=== PATIENT | female | born 1995 | race American Indian/Alaskan Native ===

== ENCOUNTER 2019-12-23 21:03 | Inpatient (IN) | payer MEDICAID ==
[2019-12-23] MEDS ORDERED: DOCUSATE SODIUM 100 MG CAP PO PRN (21:46)
[2019-12-23] MEDS ORDERED: ONDANSETRON 4 MG/2 ML INJ IV PRN (21:46)
--- NOTE | 2019-12-23 21:57 | History and Physical Report ---
History of Present Illness Date of examination: 12/23/19 Chief complaint: my water broke History of present illness: Pt is a 24 year old old primigravida ANN 05/02/20 at 21w2d who presents c/o leakage of fluid since 1999 pm 12/23/19 (though upon further questioning she reports possible leakage of fluid since 12/22/19). She reports pelvic pressure and contractions once every 2-3 hours but denies any vaginal bleeding. She has had care at [facility] with comanagement with [facility] complicated by morbid obesity, di-di twin IUP, Rubella Equivocal status, Rh Negative status, Sickle Cell Trait, Alpha Thalassemia Carrier Status, Subchorionic hemorrhage in first trimester, and shortened cervix 1.65 cm noted on MFM scan 12/10/19 with prescription for Progesterone 200 mg QHS at that time. Her GBS status is unknown. Past History Past Medical History: other (morbid obesity ) Past Surgical History: no surgical history Family/Genetic History: none Social history: no significant social history - Obstetrical History Expected Date of Delivery: 05/02/20 Actual Gestation: 21 Week(s) 3 Day(s) : 1 Medications and Allergies Allergies Allergy/AdvReac Type Severity Reaction Status Date / Time No Known Allergies Allergy Verified 12/23/19 23:12 Review of Systems All systems: negative - Physical Exam Breasts: Positive: deferred Abdomen: Positive: soft (obese, gravid ). Negative: tenderness Vagina: Positive: other (pooling on speculum exam; nitrizine positive ) Uterus: Positive: enlarged (gravid ). Negative: tender - Obstetrical FHR: auscultation normal Uterine Contraction Monitor Mode: External Cervical Dilatation: 1 (on speculum exam ) Uterine Contraction Pattern: Absent Uterine Tone Measurement Phase: Resting Results Result Diagrams: 12/23/19 22:57 12/23/19 22:57 All other labs normal. Assessment and Plan A: Di-Di twin IUP at 21w2d Previable PPROM Febrile Morbidity Morbid Obesity Rh Negative Status Rubella Equivocal Sickle Cell Trait Silent Carrier for Alpha Thalassemia GBS status unknown P: Admit to antepartum service CBC, Type and Screen, UA Ultrasound Serial Abdominal Exams Continuous toco Monitor maternal and status closely
--- NOTE | 2019-12-23 22:55 | Event Note ---
Date: 12/23/19 On-call MD presented case to On-call MD for [facility]. Clinical scenario discussed. Recommended holding antibiotics if diagnosis of chorioamnionitis not clear in an effort not to mask disease process worsening. Awaiting lab and ultrasound results. Plan to observe closely with serial abdominal examinations. Closely monitor clinical status.
[2019-12-23] MEDS ORDERED: GENTAMICIN/NS 80 MG/100 ML 100 ML IV SCH (23:00)
[2019-12-23] MEDS ORDERED: AMPICILLIN IV SCH (23:00)
[2019-12-23] MEDS ORDERED: SODIUM CHLORIDE 0.9% IV SCH (23:00)
[2019-12-23 23:27] LABS: Hematocrit 32.1 % (30.3-42.9); Hemoglobin 10.4 gm/dl (10.1-14.3); Mean Corpuscular HGB Conc 33 % (30-34); Mean Corpuscular Volume 75 fl (79-97); Platelet Count 239 K/mm3 (140-440); Red Blood Count 4.26 M/mm3 (3.65-5.03); Red Cell Distribution Width 15.3 % (13.2-15.2)
[2019-12-23] MEDS: LACTATED RINGERS 1,000 ML IV SCH (23:28)
[2019-12-23 23:58] LABS: C-Reactive Protein 4.1 mg/dL (0.00-1.30)
--- NOTE | 2019-12-24 01:04 | Ultrasound Report ---
ULTRASOUND OBSTETRIC Indication: TWIN IUP @ 21 WEEKS, PPROM Findings: There is a twin intrauterine . Twin A BPD = 5.2 cm = 21 weeks, 6 day(s). Head circumference = 19.2 cm = 21 weeks, 3 day(s). Abdominal circumference = 17.2 cm = 21 weeks, 1 day(s). Femur length = 3.4 cm = 20 weeks, 3 day(s). Overall estimated sonographic age = 21 weeks, 3 day(s). heart rate is 165 beats per minute. Estimated weight is 422 grams position is cephalic. Cervix measures 3.2 cm in length Placenta is anterior and grade 0 . Amniotic fluid volume appears normal. Twin B BPD = 5.3 cm = 22 weeks, 1 day(s). Head circumference = 19.7 cm = 21 weeks, 6 day(s). Abdominal circumference = 17.2 cm = 22 weeks, 1 day(s). Femur length = 3.7 cm = 21 weeks, 2 day(s). Overall estimated sonographic age = 21 weeks, 6 day(s). heart rate is 166 beats per minute. Estimated weight is 449 grams position is breech. Cervix measures 3.2 cm in length Placenta is posterior and grade 0 . Amniotic fluid volume appears normal. Impression: Viable twin intrauterine . No sonographic abnormality identified. Signer Name: Mayank Bragg MD Signed: 12/24/2019 1:00 AM Workstation Name: [id number]
[2019-12-24 04:05] LABS: Band Neutrophils # (Manual) 0.1 K/mm3; Basophils % (Manual) 0 % (0.0-1.8); Total Cells Counted 100
[2019-12-24 04:06] LABS: Anisocytosis Few; Hypochromasia Few; Ovalocytes Few; Platelet Estimate Consistent w Auto; Schistocytes Few; Target Cells Rare
--- NOTE | 2019-12-24 08:30 | Progress Note ---
Assessment and Plan A/P GENET twins 20 weeks PPROM fevbrile_ afebrile now consult with MFM, and NICCU close monitor covid testing Subjective - Subjective Date of service: 12/24/19 Principal diagnosis: twins, PPROM Patient reports: loss of fluid, movement normal, no new complaints, no vaginal bleeding, no contractions Objective - Vital Signs Vital Signs: Vital Signs - 12hr 12/23/19 12/23/19 12/23/19 22:17 23:02 23:05 Temperature 101.5 F H 98.0 F Pulse Rate 117 H 114 H 116 H Respiratory 18 Rate Blood Pressure Blood Pressure 120/57 [Right] O2 Sat by Pulse 97 Oximetry 12/23/19 12/23/19 12/23/19 23:07 23:12 23:17 Temperature Pulse Rate 109 H 110 H 111 H Respiratory Rate Blood Pressure Blood Pressure [Right] O2 Sat by Pulse 98 98 98 Oximetry 12/23/19 12/23/19 12/23/19 23:22 23:27 23:32 Temperature Pulse Rate 109 H 116 H 106 H Respiratory Rate Blood Pressure Blood Pressure [Right] O2 Sat by Pulse 98 98 98 Oximetry 12/23/19 12/23/19 12/23/19 23:37 23:42 23:47 Temperature Pulse Rate 112 H 108 H 112 H Respiratory Rate Blood Pressure Blood Pressure [Right] O2 Sat by Pulse 97 98 99 Oximetry 12/23/19 12/23/19 12/24/19 23:52 23:57 00:02 Temperature Pulse Rate 112 H 113 H 114 H Respiratory Rate Blood Pressure Blood Pressure [Right] O2 Sat by Pulse 98 98 98 Oximetry 12/24/19 12/24/19 12/24/19 00:07 00:12 00:17 Temperature Pulse Rate 109 H 111 H 113 H Respiratory Rate Blood Pressure Blood Pressure [Right] O2 Sat by Pulse 99 99 98 Oximetry 12/24/19 12/24/19 12/24/19 00:20 00:22 00:27 Temperature Pulse Rate 110 H 115 H 112 H Respiratory Rate Blood Pressure 117/59 Blood Pressure [Right] O2 Sat by Pulse 95 97 Oximetry 12/24/19 12/24/19 12/24/19 00:30 00:32 00:37 Temperature 98.4 F Pulse Rate 112 H 105 H Respiratory Rate Blood Pressure Blood Pressure [Right] O2 Sat by Pulse 98 97 Oximetry 12/24/19 12/24/19 12/24/19 00:42 00:47 00:52 Temperature Pulse Rate 105 H 102 H 102 H Respiratory Rate Blood Pressure Blood Pressure [Right] O2 Sat by Pulse 96 97 98 Oximetry 12/24/19 12/24/19 12/24/19 00:57 01:02 01:07 Temperature Pulse Rate 104 H 101 H 105 H Respiratory Rate Blood Pressure Blood Pressure [Right] O2 Sat by Pulse 99 100 99 Oximetry 12/24/19 12/24/19 12/24/19 01:12 01:17 01:22 Temperature Pulse Rate 104 H 103 H 101 H Respiratory Rate Blood Pressure Blood Pressure [Right] O2 Sat by Pulse 98 98 99 Oximetry 12/24/19 12/24/19 12/24/19 01:27 01:30 01:32 Temperature Pulse Rate 102 H 94 H 100 H Respiratory Rate Blood Pressure 96/51 Blood Pressure [Right] O2 Sat by Pulse 98 98 Oximetry 12/24/19 12/24/19 12/24/19 01:33 02:01 02:06 Temperature 99.0 F Pulse Rate 109 H 104 H Respiratory Rate Blood Pressure Blood Pressure [Right] O2 Sat by Pulse 96 97 Oximetry 12/24/19 12/24/19 12/24/19 02:11 02:16 02:21 Temperature Pulse Rate 105 H 105 H 104 H Respiratory Rate Blood Pressure Blood Pressure [Right] O2 Sat by Pulse 98 97 97 Oximetry 12/24/19 12/24/19 12/24/19 02:26 02:31 02:35 Temperature Pulse Rate 103 H 103 H 94 H Respiratory Rate Blood Pressure 115/64 Blood Pressure [Right] O2 Sat by Pulse 96 96 Oximetry 12/24/19 12/24/19 12/24/19 02:36 02:41 02:46 Temperature 98.8 F Pulse Rate 93 H 103 H 102 H Respiratory Rate Blood Pressure Blood Pressure [Right] O2 Sat by Pulse 97 96 97 Oximetry 12/24/19 12/24/19 12/24/19 02:51 02:56 03:01 Temperature Pulse Rate 101 H 101 H 95 H Respiratory Rate Blood Pressure Blood Pressure [Right] O2 Sat by Pulse 97 97 97 Oximetry 12/24/19 12/24/19 12/24/19 03:06 03:11 03:13 Temperature Pulse Rate 100 H 104 H 104 H Respiratory Rate Blood Pressure Blood Pressure [Right] O2 Sat by Pulse 97 97 94 Oximetry 12/24/19 12/24/19 12/24/19 03:16 03:19 03:21 Temperature Pulse Rate 102 H 94 H 96 H Respiratory Rate Blood Pressure Blood Pressure [Right] O2 Sat by Pulse 97 89 97 Oximetry 12/24/19 12/24/19 12/24/19 03:26 03:31 03:35 Temperature 98.4 F Pulse Rate 103 H 92 H Respiratory Rate Blood Pressure Blood Pressure [Right] O2 Sat by Pulse 98 98 Oximetry 12/24/19 12/24/19 12/24/19 03:36 03:41 03:46 Temperature Pulse Rate 93 H 97 H 99 H Respiratory Rate Blood Pressure 111/64 Blood Pressure [Right] O2 Sat by Pulse 96 97 97 Oximetry 12/24/19 12/24/19 12/24/19 03:51 03:56 04:01 Temperature Pulse Rate 98 H 97 H 100 H Respiratory Rate Blood Pressure Blood Pressure [Right] O2 Sat by Pulse 96 96 96 Oximetry 12/24/19 12/24/19 12/24/19 04:06 04:11 04:16 Temperature Pulse Rate 97 H 95 H 96 H Respiratory Rate Blood Pressure Blood Pressure [Right] O2 Sat by Pulse 96 97 97 Oximetry 12/24/19 12/24/19 12/24/19 04:21 04:26 04:31 Temperature Pulse Rate 104 H 106 H 101 H Respiratory Rate Blood Pressure Blood Pressure [Right] O2 Sat by Pulse 97 98 97 Oximetry 12/24/19 12/24/19 12/24/19 04:36 04:41 04:43 Temperature Pulse Rate 96 H 98 H 91 H Respiratory Rate Blood Pressure 113/63 Blood Pressure [Right] O2 Sat by Pulse 96 97 93 Oximetry 12/24/19 12/24/19 12/24/19 04:45 04:46 04:51 Temperature 98.1 F Pulse Rate 97 H 98 H Respiratory Rate Blood Pressure Blood Pressure [Right] O2 Sat by Pulse 97 98 Oximetry 12/24/19 12/24/19 12/24/19 04:52 04:56 04:59 Temperature Pulse Rate 94 H 97 H 94 H Respiratory Rate Blood Pressure Blood Pressure [Right] O2 Sat by Pulse 94 94 94 Oximetry 12/24/19 12/24/1920 05:01 05:06 05:11 Temperature Pulse Rate 95 H 96 H 96 H Respiratory Rate Blood Pressure Blood Pressure [Right] O2 Sat by Pulse 96 94 95 Oximetry 12/24/19 12/24/19 12/24/19 05:12 05:16 05:18 Temperature Pulse Rate 94 H 95 H 94 H Respiratory Rate Blood Pressure Blood Pressure [Right] O2 Sat by Pulse 94 94 94 Oximetry 12/24/19 12/24/19 12/24/19 05:21 05:26 05:30 Temperature 98.5 F Pulse Rate 97 H 97 H Respiratory Rate Blood Pressure Blood Pressure [Right] O2 Sat by Pulse 94 94 Oximetry 12/24/19 12/24/19 12/24/19 05:31 05:33 05:36 Temperature Pulse Rate 99 H 97 H 94 H Respiratory Rate Blood Pressure 114/65 Blood Pressure [Right] O2 Sat by Pulse 96 94 96 Oximetry 12/24/19 12/24/19 12/24/19 05:41 05:46 05:51 Temperature Pulse Rate 110 H 97 H 99 H Respiratory Rate Blood Pressure Blood Pressure [Right] O2 Sat by Pulse 99 99 97 Oximetry 12/24/19 12/24/19 12/24/19 05:56 06:01 06:06 Temperature Pulse Rate 98 H 97 H 95 H Respiratory Rate Blood Pressure Blood Pressure [Right] O2 Sat by Pulse 97 97 97 Oximetry 12/24/19 12/24/19 12/24/19 06:11 06:16 06:21 Temperature Pulse Rate 96 H 95 H 97 H Respiratory Rate Blood Pressure Blood Pressure [Right] O2 Sat by Pulse 96 96 97 Oximetry 12/24/19 12/24/19 12/24/19 06:26 06:31 06:36 Temperature Pulse Rate 100 H 94 H 100 H Respiratory Rate Blood Pressure 104/58 Blood Pressure [Right] O2 Sat by Pulse 96 97 95 Oximetry 12/24/19 12/24/19 12/24/19 06:41 06:46 06:51 Temperature Pulse Rate 101 H 101 H 97 H Respiratory Rate Blood Pressure Blood Pressure [Right] O2 Sat by Pulse 98 97 97 Oximetry 12/24/19 12/24/19 12/24/19 06:56 07:01 07:06 Temperature Pulse Rate 98 H 99 H 101 H Respiratory Rate Blood Pressure Blood Pressure [Right] O2 Sat by Pulse 97 97 97 Oximetry 12/24/19 12/24/19 12/24/19 07:11 07:15 07:16 Temperature 98.1 F Pulse Rate 100 H 103 H Respiratory Rate Blood Pressure Blood Pressure [Right] O2 Sat by Pulse 96 97 Oximetry 12/24/19 12/24/19 12/24/19 07:21 07:26 07:31 Temperature Pulse Rate 101 H 98 H 100 H Respiratory Rate Blood Pressure Blood Pressure [Right] O2 Sat by Pulse 97 96 99 Oximetry 12/24/19 12/24/19 12/24/19 07:36 07:39 07:41 Temperature Pulse Rate 102 H 98 H 104 H Respiratory Rate Blood Pressure 105/60 Blood Pressure [Right] O2 Sat by Pulse 95 94 95 Oximetry 12/24/19 12/24/19 12/24/19 07:46 07:51 07:56 Temperature Pulse Rate 101 H 96 H 97 H Respiratory Rate Blood Pressure Blood Pressure [Right] O2 Sat by Pulse 96 94 97 Oximetry 12/24/19 12/24/19 12/24/19 08:01 08:02 08:06 Temperature Pulse Rate 97 H 97 H 92 H Respiratory Rate Blood Pressure Blood Pressure [Right] O2 Sat by Pulse 96 94 97 Oximetry 12/24/19 12/24/19 12/24/19 08:11 08:14 08:16 Temperature Pulse Rate 103 H 89 89 Respiratory Rate Blood Pressure Blood Pressure [Right] O2 Sat by Pulse 96 94 96 Oximetry 12/24/19 12/24/19 08:21 08:26 Temperature Pulse Rate 102 H 101 H Respiratory Rate Blood Pressure Blood Pressure [Right] O2 Sat by Pulse 97 95 Oximetry - Exam Breasts: normal Cardiovascular: Regular rate, Normal S1 Lungs: Clear to auscultation, Normal air movement Abdomen: Present: normal appearance, soft, normal bowel sounds. Absent: distention, tenderness, guarding Vulva: both: normal Uterus: Present: normal, firm, fundal height below umbilicus. Absent: bogginess, tenderness FHR: auscultation normal Uterine Tone Measurement Phase: Resting Extremities: normal Deep Tendon Reflex Grade: Normal +2 - Labs Labs: Abnormal Labs 12/23/19 12/23/19 12/23/19 22:57 22:57 22:57 WBC 13.9 H MCV 75 L MCH 25 L RDW 15.3 H Seg Neuts % (Manual) 76.0 H Seg Neutrophils # Man 10.6 H D-Dimer 1255.11 H Ferritin Lactate Dehydrogenase 200 H C-Reactive Protein 4.10 H 12/23/19 22:57 WBC MCV MCH RDW Seg Neuts % (Manual) Seg Neutrophils # Man D-Dimer Ferritin 9.5 L Lactate Dehydrogenase C-Reactive Protein Laboratory Results - last 24 hr 12/23/19 12/23/19 12/23/19 22:57 22:57 22:57 WBC 13.9 H RBC 4.26 Hgb 10.4 Hct 32.1 MCV 75 L MCH 25 L MCHC 33 RDW 15.3 H Plt Count 239 Add Manual Diff Complete Total Counted 100 Seg Neuts % (Manual) 76.0 H Band Neutrophils % 1.0 Lymphocytes % (Manual) 18.0 Reactive Lymphs % (Man) 0 Monocytes % (Manual) 1.0 Eosinophils % (Manual) 2.0 Basophils % (Manual) 0 Metamyelocytes % 2.0 Myelocytes % 0 Promyelocytes % 0 Blast Cells % 0 Nucleated RBC % Not Reportable Seg Neutrophils # Man 10.6 H Band Neutrophils # 0.1 Lymphocytes # (Manual) 2.5 Abs React Lymphs (Man) 0.0 Monocytes # (Manual) 0.1 Eosinophils # (Manual) 0.3 Basophils # (Manual) 0.0 Metamyelocytes # 0.3 Myelocytes # 0.0 Promyelocytes # 0.0 Blast Cells # 0.0 WBC Morphology Not Reportable Hypersegmented Neuts Not Reportable Hyposegmented Neuts Not Reportable Hypogranular Neuts Not Reportable Smudge Cells Not Reportable Toxic Granulation Not Reportable Toxic Vacuolation Not Reportable Dohle Bodies Not Reportable Pelger-Huet Anomaly Not Reportable Pierre Rods Not Reportable Platelet Estimate Consistent w auto Clumped Platelets Not Reportable Plt Clumps, EDTA Not Reportable Large Platelets Not Reportable Giant Platelets Not Reportable Platelet Satelliting Not Reportable Plt Morphology Comment Not Reportable RBC Morphology Not Reportable Dimorphic RBCs Not Reportable Polychromasia Not Reportable Hypochromasia Few Poikilocytosis Not Reportable Anisocytosis Few Microcytosis Not Reportable Macrocytosis Not Reportable Spherocytes Not Reportable Pappenheimer Bodies Not Reportable Sickle Cells Not Reportable Target Cells Rare Tear Drop Cells Not Reportable Ovalocytes Few Helmet Cells Not Reportable Hernandez-[place] Bodies Not Reportable [place] Rings Not Reportable [place] Cells Not Reportable Bite Cells Not Reportable Crenated Cell Not Reportable Elliptocytes Not Reportable Acanthocytes (Spur) Not Reportable Rouleaux Not Reportable Hemoglobin C Crystals Not Reportable Schistocytes Few Malaria parasites Not Reportable Son Bodies Not Reportable Hem Pathologist Commnt No D-Dimer 1255.11 H Glucose Ferritin Lactate Dehydrogenase C-Reactive Protein Blood Type O NEGATIVE Antibody Screen Negative 12/23/19 12/23/19 22:57 22:57 WBC RBC Hgb Hct MCV MCH MCHC RDW Plt Count Add Manual Diff Total Counted Seg Neuts % (Manual) Band Neutrophils % Lymphocytes % (Manual) Reactive Lymphs % (Man) Monocytes % (Manual) Eosinophils % (Manual) Basophils % (Manual) Metamyelocytes % Myelocytes % Promyelocytes % Blast Cells % Nucleated RBC % Seg Neutrophils # Man Band Neutrophils # Lymphocytes # (Manual) Abs React Lymphs (Man) Monocytes # (Manual) Eosinophils # (Manual) Basophils # (Manual) Metamyelocytes # Myelocytes # Promyelocytes # Blast Cells # WBC Morphology Hypersegmented Neuts Hyposegmented Neuts Hypogranular Neuts Smudge Cells Toxic Granulation Toxic Vacuolation Dohle Bodies Pelger-Huet Anomaly Pierre Rods Platelet Estimate Clumped Platelets Plt Clumps, EDTA Large Platelets Giant Platelets Platelet Satelliting Plt Morphology Comment RBC Morphology Dimorphic RBCs Polychromasia Hypochromasia Poikilocytosis Anisocytosis Microcytosis Macrocytosis Spherocytes Pappenheimer Bodies Sickle Cells Target Cells Tear Drop Cells Ovalocytes Helmet Cells Hernandez-[place] Bodies [place] Rings Daria Cells Bite Cells Crenated Cell Elliptocytes Acanthocytes (Spur) Rouleaux Hemoglobin C Crystals Schistocytes Malaria parasites Son Bodies Hem Pathologist Commnt D-Dimer Glucose 82 Ferritin 9.5 L Lactate Dehydrogenase 200 H C-Reactive Protein 4.10 H Blood Type Antibody Screen
[2019-12-24] MEDS: PRENATAL VIT27-FE FUMARATE-FOLIC ACID VIT TAB PO SCH (09:45)
[2019-12-24 12:02] LABS: C-Reactive Protein 5.5 mg/dL (0.00-1.30)
--- NOTE | 2019-12-24 12:58 | Consultation ---
History of Present Illness Consult date: 12/24/19 Reason for consult: PROM History of present illness: Ms. Titus is a 24yo, , ANN 05/02/20, Hung twin at 21.3 weeks gestation with suspected PPROM. She admits to possible PPROM on 12/22/19, but she presented to [facility] triage on 12/23/19 for evaluation. She has been followed outpatient by [facility] for Morbid Obesity, Hung twin gestation, Alpha Thalassemia Carrier, Sickle Cell Trait, Rh negative, and cervical shortening noted on 12/10/19 at 1.65cm. She was prescribed vaginal progesterone for management. She complains of leaking of fluid and pressure. She denies contractions and vaginal bleeding. Initial temperature was noted at 101.5 orally. Covid19 testing performed and pending. She has since been afebrile. No documentation of confirmation of rupture of membranes noted in chart, but pt states she was checked in triage. Ultrasound results noted normal growth for fetus A and fetus B. Normal MVP also noted at 4.3cm for Fetus A and 3.74cm for Fetus B. Past History Past Medical History: other (morbid obesity ) Past Surgical History: no surgical history Family/Genetic History: none - Obstetrical History : 1 Medications and Allergies Allergies Allergy/AdvReac Type Severity Reaction Status Date / Time No Known Allergies Allergy Verified 12/23/19 23:12 Active Meds: Active Medications Acetaminophen (Tylenol) 650 mg PO Q4H PRN PRN Reason: Pain MILD(1-3)/Fever >100.5/CAIN Docusate Sodium (Colace) 100 mg PO Q12H PRN PRN Reason: Constipation Lactated Ringer's (Lactated Ringers) 1,000 mls @ 125 mls/hr IV DIRECT MELISSA Last Admin: 12/23/19 23:28 Dose: 125 mls/hr Documented by: Multivitamins/Iron/Calcium ( Vitamin) 1 each PO QDAY MELISSA Ondansetron HCl (Zofran) 4 mg IV Q6H PRN PRN Reason: Nausea And Vomiting Review of Systems Constitutional: other (denies fevers, fatigue) Eyes: other (denies visual disturbances) Ears, nose, mouth and throat: deferred Cardiovascular: other (denies chest pain, palpitations, edema) Respiratory: other (denies SOB, wheezing, and coughing) Breasts: deferred Gastrointestinal: other (denies nausea, vomiting, diarrhea, constipation) Genitourinary: leakage of fluid, other (denies vaginal bleeding, contractions) Rectal Exam: deferred Neurological: other (denies headaches) - Vital Signs Vital signs: Vital Signs Temp Pulse Resp BP 101.5 F H 117 H 18 120/57 12/23/19 22:17 12/23/19 22:17 12/23/19 22:17 12/23/19 22:17 Temp Pulse Resp BP Pulse Ox 98.8 F 88 18 106/53 97 12/24/19 11:30 12/24/19 12:51 12/23/19 22:17 12/24/19 12:36 12/24/19 12:51 - Physical Exam Breasts: Positive: deferred Cardiovascular: Regular rate, Normal S1, Normal S2 Lungs: Positive: Clear to auscultation Abdomen: Positive: soft, other (gravid) Results Result Diagrams: 12/23/19 22:57 12/24/19 11:15 Abnormal lab results 12/23/19 12/23/19 12/23/19 Range/Units 22:57 22:57 22:57 WBC 13.9 H (4.5-11.0) K/mm3 MCV 75 L (79-97) fl MCH 25 L (28-32) pg RDW 15.3 H (13.2-15.2) % Seg Neuts % (Manual) 76.0 H (40.0-70.0) % Seg Neutrophils # Man 10.6 H (1.8-7.7) K/mm3 D-Dimer 1255.11 H (0-234) ng/mlDDU Ferritin (13.0-400.0) ng/mL Lactate Dehydrogenase 200 H (91-180) units/L C-Reactive Protein 4.10 H (0.00-1.30) mg/dL 12/23/19 12/24/19 12/24/19 Range/Units 22:57 11:15 11:15 WBC (4.5-11.0) K/mm3 MCV (79-97) fl MCH (28-32) pg RDW (13.2-15.2) % Seg Neuts % (Manual) (40.0-70.0) % Seg Neutrophils # Man (1.8-7.7) K/mm3 D-Dimer 982.33 H (0-234) ng/mlDDU Ferritin 9.5 L (13.0-400.0) ng/mL Lactate Dehydrogenase 201 H (91-180) units/L C-Reactive Protein 5.50 H (0.00-1.30) mg/dL 12/24/19 Range/Units 11:15 WBC (4.5-11.0) K/mm3 MCV (79-97) fl MCH (28-32) pg RDW (13.2-15.2) % Seg Neuts % (Manual) (40.0-70.0) % Seg Neutrophils # Man (1.8-7.7) K/mm3 D-Dimer (0-234) ng/mlDDU Ferritin 10.7 L (13.0-400.0) ng/mL Lactate Dehydrogenase (91-180) units/L C-Reactive Protein (0.00-1.30) mg/dL All other labs normal. Assessment and Plan Assessment- Hung Twin IUP at 21.3 weeks- ANN 05/02/20 PPROM at 21.0 weeks Previable Morbidly Obese Sickle Cell Trait Alpha Thalassemia Carrier Rh negative Covid19 testing- pending, initial temp 101.5 orally VSS, Afebrile currently WBC 13.9 Normal growth assessments from ultrasound on 12/23/19 Normal MVP for Fetus A at 4.3cm, Normal MVP for Fetus B at 3.74cm Reassuring cervical length at 3.2cm I have discussed plan of care and management with Dr. Rhodes. I discussed with Ms. Titus and her mother regarding management for PPROM prior to 24 weeks gestation. She was informed of high morbidity/mortality and survival rates at this early gestation, increased risk for infection, and possible labor that may ensue. She was informed that she has the option for expectant management versus immediate delivery at this time. She was informed that if she chose expectant maangement, outpatient surveillance is warranted and she will return to the hospital with at 23 weeks or with signs of bleeding, labor symptoms, or infection ( elevated temperatures). She was in formed that if her continues until 23 weeks, Betamethasone for lung maturity and antibiotics can be given. Magnesium Sulfate for neuroprotection can be considered as early as 23 weeks as well. She was informed that prognosis can still remain poor at 23 weeks. After out discussion, she stated she was unsure if she wanted to continue with expectant management or seek immediate delivery. She will discuss with her mother and FOB. Plan: Continue expectant management until pt makes a decision. Consult NICU. Monitor for signs of Ch[place]. Document Covid19 results. Please document confirmation of rupture of membranes. With additional questions/concerns, contact personal attendant THAD ROGERS, . Thank you for your consult.
--- NOTE | 2019-12-24 15:10 | Consultation ---
Consult Note - Parent Education Parent(s) demonstrated understanding of all the information:: Yes Additional Comment: Asked by Dr. Cori Haque to talk with Ms. Titus in L/D room 2004 due to PPROM at 21 wks. Mom is 24 yo G1PO with di/di twins, 21wks, 3days by certain LMP. EDC 05/02/20. complicated by PPROM 12/21, PTL, morbid obesity, febrile-now PUI, awaiting COVID test result, RH neg, Rubella equivocal, sickle cell trait, alpha thal carrier, subchorionic hemorrhage in fi rst trimester, shortened cervix with funneling-started progesterone on 12/09. labs: O neg, AB screen +, hep neg, HIV neg, RPR NR, HSV 2 neg, rubella equivocal, unknown GBS. Nl Quad screen/Panorama. To minimize exposure with Moms PUI status, called her in Room 2004, with charge nurse, Pedro Diaz present to discuss NICU perspective. After a brief introduction and recap of her medical status, reiterated viability at 24 wks. Since she is only 21 wks, 3 days and certain regarding LMP with U/S support, there are no interventions available for her babies. If latency possible, discussed that at 23 wks NICU would be involved to evaluate maturity/size to determine if resuscitation was then feasible. Reported survival at 24 wks ~ 50% without any additional risk factors, although much less with PPROM and suspected infection. All Moms questions answered and voiced understanding of discussion. At time of talk, she was going to continue expectant management and remains hopeful. Re assured that NICU will be available near viability. Assessment and Plan - Assessment Gestation:: 21 (Di/Di Twin gestation) - Plan Plan: Thank you very kindly for the consult and please contact NICU if Mom remains undelivered closer to viability. Notify if any questions regarding data or delivery management.
--- NOTE | 2019-12-24 15:15 | Consultation ---
History of Present Illness - Reason for Consult Consult date: 12/24/19 PPROM, febrile Requesting physician: ALONSO HAQUE - History of Present Illness 24 yo female with history of morbid obesity, alpha thalassemia carrier and SCD trait and twin at 21 weeks admitted on due to suspected PPROM started on 12/22/2019. She admits to possible PPROM on 12/22/19, but she presented to [facility] triage on 12/23/19 for evaluation. She denies contractions and vaginal bleeding or discharge. Denies any fever, cough, SOB, she has not been in contact with any sick patients with COVID. Ultrasound results noted normal growth for fetus A and fetus B. labs: hep neg, HIV neg, RPR NR, HSV 2 neg, rubella equivocal, unknown GBS. Review of Systems: positive in bold print General: fever, chills, body aches Cutaneous: rash, pruritus Head: headaches or injury Eyes: changes in vision, eye pain, double vision Ears: ear pain, ear discharge, ringing or hearing loss Nose: nose bleeding, stuffiness Mouth & throat: bleeding gums, horseness, no dental problems, or swollen glands Neck: no pain, node enlargement/lumps, tyroid enlargement or tenderness Respiratory: SOB, cough, FERNANDO, wheezing, sputum, hemoptysis, pleuritic chest p ain Cardiovascular: chest pain, leg edema, cyanosis, FERNANDO, orthopnea Musculoskeletal: edema Gastrointestinal: nausea, vomiting, hematemesis, diarrhea, constipation, melena, bright red blood in stools, fecal incontinence, jaundice Genitourinary/Reproductive: +watery discharge Neurogical: seizures, headaches, weakness, paresthesias, loss of speech or vision; memory loss, vertigo, tremors, numbness Psychiatric: stable mood; excessive anxiety, sadness or moodiness Past History Social history: no significant social history Medications and Allergies Allergies Allergy/AdvReac Type Severity Reaction Status Date / Time No Known Allergies Allergy Verified 12/23/19 23:12 Active Meds: Active Medications Acetaminophen (Tylenol) 650 mg PO Q4H PRN PRN Reason: Pain MILD(1-3)/Fever >100.5/CAIN Docusate Sodium (Colace) 100 mg PO Q12H PRN PRN Reason: Constipation Lactated Ringer's (Lactated Ringers) 1,000 mls @ 125 mls/hr IV DIRECT MELISSA Last Admin: 12/23/19 23:28 Dose: 125 mls/hr Documented by: Multivitamins/Iron/Calcium ( Vitamin) 1 each PO QDAY MELISSA Ondansetron HCl (Zofran) 4 mg IV Q6H PRN PRN Reason: Nausea And Vomiting Physical Examination - Physical Exam Narrative exam: General appearance: Alert in NAD morbidly obese Eyes: anicteric sclerae, moist conjunctivae; no lid-lag; PERRLA HENT: Atraumatic; oropharynx clear Lungs: CTA CV: RRR no murmur Abdomen: Soft, non-tender; Extremities:+no edema Skin: No rash. Psych: Appropriate affect, alert and oriented to person, place and time. Neuro: alert and oriented x 3. Moving all extermities - Constitutional Vitals: Vital Signs Temp Pulse Resp BP Pulse Ox 98.7 F 96 H 18 107/58 100 12/24/19 13:30 12/24/19 14:36 12/23/19 22:17 12/24/19 14:36 12/24/19 13:26 Temperature -Last 24 Hours Temperature 98.7 F Temperature 98.7 F Temperature 98.8 F Temperature 98.8 F Temperature 98.9 F Temperature 98.7 F Temperature 98.1 F Temperature 98.5 F Temperature 98.1 F Temperature 98.4 F Temperature 98.8 F Temperature 99.0 F Temperature 98.4 F Temperature 98.0 F Temperature 101.5 F Results - Labs CBC & Chem 7: 12/23/19 22:57 12/24/19 11:15 Labs: Abnormal lab results 12/23/19 12/23/19 12/23/19 Range/Units 22:57 22:57 22:57 WBC 13.9 H (4.5-11.0) K/mm3 MCV 75 L (79-97) fl MCH 25 L (28-32) pg RDW 15.3 H (13.2-15.2) % Seg Neuts % (Manual) 76.0 H (40.0-70.0) % Seg Neutrophils # Man 10.6 H (1.8-7.7) K/mm3 D-Dimer 1255.11 H (0-234) ng/mlDDU Ferritin (13.0-400.0) ng/mL Lactate Dehydrogenase 200 H (91-180) units/L C-Reactive Protein 4.10 H (0.00-1.30) mg/dL 12/23/19 12/24/19 12/24/19 Range/Units 22:57 11:15 11:15 WBC (4.5-11.0) K/mm3 MCV (79-97) fl MCH (28-32) pg RDW (13.2-15.2) % Seg Neuts % (Manual) (40.0-70.0) % Seg Neutrophils # Man (1.8-7.7) K/mm3 D-Dimer 982.33 H (0-234) ng/mlDDU Ferritin 9.5 L (13.0-400.0) ng/mL Lactate Dehydrogenase 201 H (91-180) units/L C-Reactive Protein 5.50 H (0.00-1.30) mg/dL 12/24/19 Range/Units 11:15 WBC (4.5-11.0) K/mm3 MCV (79-97) fl MCH (28-32) pg RDW (13.2-15.2) % Seg Neuts % (Manual) (40.0-70.0) % Seg Neutrophils # Man (1.8-7.7) K/mm3 D-Dimer (0-234) ng/mlDDU Ferritin 10.7 L (13.0-400.0) ng/mL Lactate Dehydrogenase (91-180) units/L C-Reactive Protein (0.00-1.30) mg/dL Assessment and Plan Cultures: none Assessment: 24 yo female with history of morbid obesity, alpha thalassemia carrier and SCD trait and twin at 21 weeks admitted on due to suspected PPROM started on 12/22/2019 with fever: #SIRS: present on admission with fever, tachycardia and leukocytosis; unclear source ? doubt chorioamnionitis, ?UTI. COVID test negative. #PPROM on 12/22/19, but she presented to [facility] triage on 12/23/19 for evaluation. Ultrasound results noted normal growth for fetus A and fetus B. Recommendations: ok to stop COVID isolation obtain blood culture, UA, urine culture obtain group B Strep screening consider check GC/chlamydia consideration of prophylactic antibiotics azithromycin 1 g po x 1 plus ampicillin 2 gm IV q 6 hour for 48h followed by amoxicillin 875 mg po q 12 hour for 5 days, discussed with OB however holding off as per community coordinator for high school recommendations. Discussed with Dr Haque I am covering this weekend Will follow. Inge Flores MD Infectious Diseases Thermospray Operator [facility] M [phone] O [phone]
[2019-12-25] MEDS: ACETAMINOPHEN 325 MG TAB PO PRN ×3 (05:17→21:38)
[2019-12-25] MEDS ORDERED: BUTORPHANOL 2 MG/1 ML INJ IV PRN (06:38)
[2019-12-25] MEDS ORDERED: BUTORPHANOL 2 MG/1 ML INJ ONE (06:40)
[2019-12-25] MEDS ORDERED: ePHEDrine SULFATE 50 MG/1 ML INJ ONE (07:34)
--- NOTE | 2019-12-25 07:43 | Progress Note ---
Assessment and Plan A/P GENET twins 21 weeks PPROM labor inevitable afebrile appreciate consult from MFM, ID and [facility] prepare for delivery offer epidural Subjective - Subjective Date of service: 12/25/19 Principal diagnosis: twins, PPROM, inevitable Patient reports: loss of fluid, movement normal, contractions, no new complaints, no vaginal bleeding Objective - Vital Signs Vital Signs: Vital Signs - 12hr 12/24/19 12/24/19 12/24/19 19:56 20:01 20:06 Temperature Pulse Rate 114 H 110 H 112 H Respiratory Rate Blood Pressure Blood Pressure [Right] O2 Sat by Pulse 99 99 100 Oximetry 12/24/19 12/24/19 12/24/19 20:11 20:16 20:18 Temperature 99.2 F Pulse Rate 114 H 123 H 110 H Respiratory Rate Blood Pressure Blood Pressure 109/63 [Right] O2 Sat by Pulse 71 L 94 Oximetry 12/24/19 12/24/19 12/24/19 20:21 20:26 20:29 Temperature Pulse Rate 113 H 111 H 107 H Respiratory Rate Blood Pressure Blood Pressure [Right] O2 Sat by Pulse 100 100 90 Oximetry 12/24/19 12/24/19 12/24/19 20:31 20:36 20:41 Temperature Pulse Rate 107 H 109 H 108 H Respiratory Rate Blood Pressure 111/59 Blood Pressure [Right] O2 Sat by Pulse 100 100 100 Oximetry 12/24/19 12/24/19 12/24/19 20:46 20:51 20:52 Temperature Pulse Rate 107 H 114 H 118 H Respiratory Rate Blood Pressure Blood Pressure [Right] O2 Sat by Pulse 100 98 91 Oximetry 12/24/19 12/24/19 12/24/19 20:56 20:57 21:01 Temperature Pulse Rate 106 H 110 H 101 H Respiratory Rate Blood Pressure Blood Pressure [Right] O2 Sat by Pulse 100 93 100 Oximetry 12/24/19 12/24/19 12/24/19 21:06 21:09 21:11 Temperature Pulse Rate 99 H 104 H 103 H Respiratory Rate Blood Pressure Blood Pressure [Right] O2 Sat by Pulse 97 93 100 Oximetry 12/24/19 12/24/19 12/24/19 21:16 21:17 21:21 Temperature Pulse Rate 100 H 103 H 103 H Respiratory Rate Blood Pressure Blood Pressure [Right] O2 Sat by Pulse 96 94 100 Oximetry 12/24/19 12/24/19 12/24/19 21:26 21:31 21:36 Temperature Pulse Rate 101 H 107 H 101 H Respiratory Rate Blood Pressure 81/40 Blood Pressure [Right] O2 Sat by Pulse 99 100 100 Oximetry 12/24/19 12/24/19 12/24/19 21:40 21:41 21:43 Temperature Pulse Rate 104 H 106 H 100 H Respiratory Rate Blood Pressure 105/59 Blood Pressure [Right] O2 Sat by Pulse 91 96 Oximetry 12/24/19 12/24/19 12/24/19 21:46 21:51 21:56 Temperature Pulse Rate 106 H 100 H 101 H Respiratory Rate Blood Pressure Blood Pressure [Right] O2 Sat by Pulse 99 100 100 Oximetry 12/24/19 12/24/19 12/24/19 21:58 22:01 22:04 Temperature Pulse Rate 110 H 99 H 106 H Respiratory Rate Blood Pressure Blood Pressure [Right] O2 Sat by Pulse 94 100 66 L Oximetry 12/24/19 12/24/19 12/24/19 22:06 22:11 22:16 Temperature Pulse Rate 105 H 108 H 110 H Respiratory Rate Blood Pressure Blood Pressure [Right] O2 Sat by Pulse 99 100 100 Oximetry 12/24/19 12/24/19 12/24/19 22:20 22:21 22:26 Temperature 98.9 F Pulse Rate 109 H 114 H Respiratory Rate Blood Pressure Blood Pressure [Right] O2 Sat by Pulse 100 100 Oximetry 12/24/19 12/24/19 12/24/19 22:27 22:31 22:33 Temperature Pulse Rate 107 H 109 H 60 Respiratory Rate Blood Pressure Blood Pressure [Right] O2 Sat by Pulse 84 100 30 L Oximetry 12/24/19 12/24/19 12/24/19 22:36 22:40 22:41 Temperature Pulse Rate 109 H 72 104 H Respiratory Rate Blood Pressure 102/57 Blood Pressure [Right] O2 Sat by Pulse 100 44 L 92 Oximetry 12/24/19 12/24/19 12/24/19 22:46 22:51 22:56 Temperature Pulse Rate 109 H 108 H 111 H Respiratory Rate Blood Pressure Blood Pressure [Right] O2 Sat by Pulse 99 100 100 Oximetry 12/24/19 12/24/19 12/24/19 22:58 23:01 23:05 Temperature Pulse Rate 101 H 111 H 25 L Respiratory Rate Blood Pressure Blood Pressure [Right] O2 Sat by Pulse 82 L 96 88 Oximetry 12/24/19 12/24/19 12/24/19 23:06 23:11 23:16 Temperature Pulse Rate 107 H 53 L 107 H Respiratory Rate Blood Pressure Blood Pressure [Right] O2 Sat by Pulse 87 41 L 99 Oximetry 12/24/19 12/24/19 12/24/19 23:21 23:26 23:31 Temperature Pulse Rate 105 H 99 H 109 H Respiratory Rate Blood Pressure Blood Pressure [Right] O2 Sat by Pulse 98 99 98 Oximetry 12/24/19 12/24/19 12/24/19 23:36 23:41 23:46 Temperature Pulse Rate 106 H 106 H 107 H Respiratory Rate Blood Pressure 97/52 Blood Pressure [Right] O2 Sat by Pulse 96 96 96 Oximetry 12/24/19 12/24/19 12/24/19 23:49 23:51 23:55 Temperature Pulse Rate 117 H 105 H 110 H Respiratory Rate Blood Pressure Blood Pressure [Right] O2 Sat by Pulse 94 94 94 Oximetry 12/24/19 12/25/19 12/25/19 23:56 00:01 00:06 Temperature Pulse Rate 108 H 104 H 109 H Respiratory Rate Blood Pressure Blood Pressure [Right] O2 Sat by Pulse 99 100 98 Oximetry 12/25/19 12/25/19 12/25/19 00:11 00:16 00:21 Temperature Pulse Rate 107 H 106 H 104 H Respiratory Rate Blood Pressure Blood Pressure [Right] O2 Sat by Pulse 98 96 97 Oximetry 12/25/19 12/25/19 12/25/19 00:26 00:31 00:36 Temperature Pulse Rate 107 H 105 H 105 H Respiratory Rate Blood Pressure 98/53 Blood Pressure [Right] O2 Sat by Pulse 97 99 97 Oximetry 12/25/19 12/25/19 12/25/19 00:41 00:46 00:51 Temperature Pulse Rate 98 H 98 H 100 H Respiratory Rate Blood Pressure Blood Pressure [Right] O2 Sat by Pulse 97 98 97 Oximetry 12/25/19 12/25/19 12/25/19 00:56 01:00 01:01 Temperature 99.1 F Pulse Rate 101 H 98 H Respiratory Rate Blood Pressure Blood Pressure [Right] O2 Sat by Pulse 97 93 Oximetry 12/25/19 12/25/19 12/25/19 01:06 01:11 01:16 Temperature Pulse Rate 71 103 H 103 H Respiratory Rate Blood Pressure Blood Pressure [Right] O2 Sat by Pulse 54 L 98 96 Oximetry 12/25/19 12/25/19 12/25/19 01:18 01:21 01:26 Temperature Pulse Rate 113 H 104 H 102 H Respiratory Rate Blood Pressure Blood Pressure [Right] O2 Sat by Pulse 70 L 98 99 Oximetry 12/25/19 12/25/19 12/25/19 01:31 01:32 01:36 Temperature Pulse Rate 107 H 101 H 99 H Respiratory Rate Blood Pressure 100/58 Blood Pressure [Right] O2 Sat by Pulse 99 38 L 95 Oximetry 12/25/19 12/25/19 12/25/19 01:41 01:42 01:47 Temperature Pulse Rate 102 H 103 H 104 H Respiratory Rate Blood Pressure Blood Pressure [Right] O2 Sat by Pulse 95 88 88 Oximetry 12/25/19 12/25/19 12/25/19 01:53 01:54 01:59 Temperature Pulse Rate 34 L 107 H Respiratory Rate Blood Pressure Blood Pressure [Right] O2 Sat by Pulse 74 L 87 100 Oximetry 12/25/19 12/25/19 12/25/19 02:04 02:09 02:14 Temperature Pulse Rate 105 H 105 H 104 H Respiratory Rate Blood Pressure Blood Pressure [Right] O2 Sat by Pulse 100 100 98 Oximetry 12/25/19 12/25/19 12/25/19 02:19 02:24 02:29 Temperature Pulse Rate 108 H 101 H 98 H Respiratory Rate Blood Pressure Blood Pressure [Right] O2 Sat by Pulse 100 99 99 Oximetry 12/25/19 12/25/19 12/25/19 02:34 02:36 02:39 Temperature Pulse Rate 102 H 104 H 104 H Respiratory Rate Blood Pressure 134/75 Blood Pressure [Right] O2 Sat by Pulse 96 99 Oximetry 12/25/19 12/25/19 12/25/19 02:44 02:49 02:54 Temperature Pulse Rate 104 H 103 H 103 H Respiratory Rate Blood Pressure Blood Pressure [Right] O2 Sat by Pulse 97 99 99 Oximetry 12/25/19 12/25/19 12/25/19 02:59 03:00 03:01 Temperature 99.4 F Pulse Rate 107 H 104 H Respiratory Rate Blood Pressure Blood Pressure [Right] O2 Sat by Pulse 98 94 Oximetry 12/25/19 12/25/19 12/25/19 03:04 03:09 03:14 Temperature Pulse Rate 106 H 102 H 102 H Respiratory Rate Blood Pressure Blood Pressure [Right] O2 Sat by Pulse 98 98 98 Oximetry 12/25/19 12/25/19 12/25/19 03:19 03:24 03:29 Temperature Pulse Rate 101 H 95 H 105 H Respiratory Rate Blood Pressure Blood Pressure [Right] O2 Sat by Pulse 99 98 98 Oximetry 12/25/19 12/25/19 12/25/19 03:34 03:36 03:39 Temperature Pulse Rate 100 H 97 H 108 H Respiratory Rate Blood Pressure 99/55 Blood Pressure [Right] O2 Sat by Pulse 97 99 Oximetry 12/25/19 12/25/19 12/25/19 03:44 03:49 03:54 Temperature Pulse Rate 103 H 104 H 102 H Respiratory Rate Blood Pressure Blood Pressure [Right] O2 Sat by Pulse 98 98 98 Oximetry 12/25/19 12/25/19 12/25/19 03:59 04:04 04:09 Temperature Pulse Rate 102 H 100 H 109 H Respiratory Rate Blood Pressure Blood Pressure [Right] O2 Sat by Pulse 99 96 96 Oximetry 12/25/19 12/25/19 12/25/19 04:14 04:19 04:24 Temperature Pulse Rate 111 H 102 H 120 H Respiratory Rate Blood Pressure Blood Pressure [Right] O2 Sat by Pulse 100 98 99 Oximetry 12/25/19 12/25/19 12/25/19 04:29 04:31 04:34 Temperature Pulse Rate 111 H 103 H Respiratory Rate Blood Pressure Blood Pressure [Right] O2 Sat by Pulse 99 78 L 96 Oximetry 12/25/19 12/25/19 12/25/19 04:36 04:39 04:44 Temperature Pulse Rate 101 H 108 H 104 H Respiratory Rate Blood Pressure 120/86 Blood Pressure [Right] O2 Sat by Pulse 100 100 Oximetry 12/25/19 12/25/19 12/25/19 04:49 04:54 04:59 Temperature Pulse Rate 107 H 105 H 104 H Respiratory Rate Blood Pressure Blood Pressure [Right] O2 Sat by Pulse 100 100 99 Oximetry 12/25/19 12/25/19 12/25/19 05:04 05:09 05:14 Temperature Pulse Rate 79 91 H 80 Respiratory Rate Blood Pressure Blood Pressure [Right] O2 Sat by Pulse 96 99 97 Oximetry 12/25/19 12/25/19 12/25/19 05:16 05:17 05:19 Temperature Pulse Rate 61 106 H Respiratory 18 Rate Blood Pressure Blood Pressure [Right] O2 Sat by Pulse 65 L 97 Oximetry 12/25/19 12/25/19 12/25/19 05:24 05:29 05:34 Temperature Pulse Rate 105 H 102 H 99 H Respiratory Rate Blood Pressure Blood Pressure [Right] O2 Sat by Pulse 99 97 97 Oximetry 12/25/19 12/25/19 12/25/19 05:39 05:44 05:49 Temperature Pulse Rate 100 H 91 H 91 H Respiratory Rate Blood Pressure Blood Pressure [Right] O2 Sat by Pulse 99 96 97 Oximetry 12/25/19 12/25/19 12/25/19 05:54 05:59 06:01 Temperature Pulse Rate 91 H 83 94 H Respiratory Rate Blood Pressure Blood Pressure [Right] O2 Sat by Pulse 98 97 93 Oximetry 12/25/19 12/25/19 12/25/19 06:04 06:09 06:14 Temperature Pulse Rate 97 H 106 H 96 H Respiratory Rate Blood Pressure Blood Pressure [Right] O2 Sat by Pulse 94 99 98 Oximetry 12/25/19 12/25/19 12/25/19 06:17 06:19 06:24 Temperature Pulse Rate 103 H 107 H Respiratory 18 Rate Blood Pressure Blood Pressure [Right] O2 Sat by Pulse 100 99 Oximetry 12/25/19 12/25/19 12/25/19 06:29 06:34 06:39 Temperature Pulse Rate 101 H 87 103 H Respiratory Rate Blood Pressure Blood Pressure [Right] O2 Sat by Pulse 100 100 100 Oximetry 12/25/19 12/25/19 12/25/19 06:44 06:49 06:54 Temperature Pulse Rate 107 H 107 H 106 H Respiratory 18 Rate Blood Pressure Blood Pressure [Right] O2 Sat by Pulse 97 98 97 Oximetry 12/25/19 12/25/19 12/25/19 06:59 07:00 07:04 Temperature Pulse Rate 107 H 100 H 107 H Respiratory Rate Blood Pressure Blood Pressure [Right] O2 Sat by Pulse 97 94 97 Oximetry 12/25/19 12/25/19 12/25/19 07:09 07:14 07:19 Temperature Pulse Rate 102 H 99 H 103 H Respiratory Rate Blood Pressure Blood Pressure [Right] O2 Sat by Pulse 94 98 99 Oximetry 12/25/19 12/25/19 12/25/19 07:24 07:29 07:34 Temperature Pulse Rate 99 H 100 H 103 H Respiratory Rate Blood Pressure Blood Pressure [Right] O2 Sat by Pulse 100 100 99 Oximetry 12/25/19 07:39 Temperature Pulse Rate 102 H Respiratory Rate Blood Pressure Blood Pressure [Right] O2 Sat by Pulse 98 Oximetry - Exam Breasts: normal Cardiovascular: Regular rate, Normal S1 Lungs: Clear to auscultation, Normal air movement Abdomen: Present: normal appearance, soft, normal bowel sounds. Absent: distention, tenderness, guarding Uterus: Present: normal, firm, fundal height below umbilicus. Absent: bogginess, tenderness FHR: auscultation normal Uterine Tone Measurement Phase: Contraction Uterine Contraction Intensity: Strong/Firm Deep Tendon Reflex Grade: Normal +2 - Labs Labs: Abnormal Labs 12/23/19 12/23/19 12/23/19 22:57 22:57 22:57 WBC 13.9 H MCV 75 L MCH 25 L RDW 15.3 H Seg Neuts % (Manual) 76.0 H Seg Neutrophils # Man 10.6 H D-Dimer 1255.11 H Ferritin Lactate Dehydrogenase 200 H C-Reactive Protein 4.10 H 12/23/19 12/24/19 12/24/19 22:57 11:15 11:15 WBC MCV MCH RDW Seg Neuts % (Manual) Seg Neutrophils # Man D-Dimer 982.33 H Ferritin 9.5 L Lactate Dehydrogenase 201 H C-Reactive Protein 5.50 H 12/24/19 11:15 WBC MCV MCH RDW Seg Neuts % (Manual) Seg Neutrophils # Man D-Dimer Ferritin 10.7 L Lactate Dehydrogenase C-Reactive Protein Laboratory Results - last 24 hr 12/23/19 12/24/19 12/24/19 22:57 11:15 11:15 D-Dimer 982.33 H Glucose 79 Ferritin Lactate Dehydrogenase 201 H C-Reactive Protein 5.50 H Procalcitonin < 0.05 Coronavirus (PCR) 12/24/19 12/24/19 12/24/19 11:15 11:15 Unknown D-Dimer Glucose Ferritin 10.7 L Lactate Dehydrogenase C-Reactive Protein Procalcitonin 0.07 Coronavirus (PCR) Negative
[2019-12-25] MEDS: LACTATED RINGERS 1,000 ML IV SCH ×4 (07:50→19:11)
[2019-12-25] MEDS ORDERED: DEXMEDETOMIDINE 200 MCG/2 ML VIAL IV ONE (08:41)
[2019-12-25 08:45] LABS: Basophils # (Auto) 0.1 K/mm3 (0.0-0.1); Basophils % (Auto) 0.3 % (0.0-1.8); Eosinophils % (Auto) 0.1 % (0.0-4.3); Hemoglobin 10.5 gm/dl (10.1-14.3); Lymphocytes # (Auto) 1.1 K/mm3 (1.2-5.4); Lymphocytes % (Auto) 7.1 % (13.4-35.0); Mean Corpuscular HGB Conc 33 % (30-34); Mean Corpuscular Volume 76 fl (79-97); Monocytes # (Auto) 1.1 K/mm3 (0.0-0.8); Monocytes % (Auto) 6.7 % (0.0-7.3); Platelet Count 197 K/mm3 (140-440); Red Cell Distribution Width 15.1 % (13.2-15.2)
[2019-12-25] MEDS ORDERED: ePHEDrine SULFATE 50 MG/1 ML INJ IV PRN (09:21)
[2019-12-25] MEDS ORDERED: NALOXONE 2 MG/2 ML INJ IV PRN (09:21)
--- NOTE | 2019-12-25 09:24 | Anesthesia Consultation ---
Anesthesia Consult and Med Hx Date of service: 12/25/19 - Airway Anesthetic Teeth Evaluation: Good ROM Head & Neck: Adequate Mental/Hyoid Distance: Adequate Mallampati Class: Class III Intubation Access Assessment: Probably Good - Pulmonary Exam CTA: Yes - Cardiac Exam Cardiac Exam: RRR - Pre-Operative Health Status ASA Pre-Surgery Classification: ASA3 Proposed Anesthetic Plan: Epidural - Pulmonary Hx Smoking: No Hx Asthma: No Hx Respiratory Symptoms: No SOB: No COPD: No Home Oxygen Therapy: No Hx Pneumonia: No Hx Sleep Apnea: No - Cardiovascular System Hx Hypertension: No Hx Coronary Artery Disease: No Hx Heart Attack/AMI: No Hx Angina: No Hx Percutaneous Transluminal Coronary Angioplasty (PTCA): No Hx Cardia Arrhythmia: No Hx Pacemaker: No Hx Internal Defibrillator: No Hx Valvular Heart Disease: No Hx Heart Murmur: No Hx Peripheral Vascular Disease: No - Central Nervous System Hx Neuromuscular Disorder: No Hx Seizures: No CVA: No Hx Back Pain: No Hx Psychiatric Problems: No - Gastrointestinal Hx Ulcer: No Hx Gastroesophageal Reflux Disease: Yes - Endocrine Hx Renal Disease: No Hx End Stage Renal Disease: No Hx Cirrhosis: No Hx Liver Disease: No Hx Insulin Dependent Diabetes: No Hx Hypothyroidism: No Hx Hyperthyroidism: No - Hematic Hx Anemia: Yes Hx Sickle Cell Disease: No - Other Systems Hx Alcohol Use: No Hx Substance Use: No Hx Cancer: No Hx Obesity: Yes
[2019-12-25] MEDS ORDERED: fentaNYL-BUPIV 2 MCG/ML-0.125% 200 MCG/100 ML BAG EPIDURAL SCH (10:00)
[2019-12-25] MEDS ORDERED: OXYTOCIN DRIP 30 UNITS/500 ML BAG IV SCH (11:00)
[2019-12-25] MEDS: AMPICILLIN/NS 2 GM/100 ML 2 GM/100 ML BAG IV SCH ×2 (11:18→18:07)
[2019-12-25] MEDS ORDERED: OXYTOCIN 20 UNIT/1000ML DRIP 20,000 MILLIUNITS/1,000 ML BAG IV ONE ×2 (12:12→14:34)
[2019-12-25] MEDS ORDERED: GENTAMICIN/NS 80 MG/100 ML 100 ML IV ONE (13:20)
[2019-12-25] MEDS ORDERED: miSOPROStol 200 MCG TAB ONE (13:28)
[2019-12-25] MEDS ORDERED: METHYLERGONOVINE MALEATE 0.2 MG/ML VIAL IM ONE ×2 (13:29→14:23)
[2019-12-25] MEDS ORDERED: miSOPROStol 200 MCG TAB PR ONE (13:31)
--- NOTE | 2019-12-25 13:39 | Post Anesthesia Evaluation ---
- Post Anesthesia Evaluation Patient Participated: Yes Airway Patent: Yes Stable Respiratory Function: Yes Nausea/Vomiting: No Temp > 96.8F: Yes Pain Manageable: Yes Adequeate Hydration: Yes Anesthesia Complications: No Block Receding Appropriately: Yes Patient on Ventilator: No
--- NOTE | 2019-12-25 13:45 | Procedure Note ---
OB Delivery Note - Delivery Date of Delivery: 12/25/19 Surgeon: ALONSO ROBLES Estimated blood loss: 1000cc - Vaginal Delivery presentation: vertex Delivery position: OA Intrapartum events: labor-<37 weeks Delivery induction: none Delivery augmentation: rupture of membranes Delivery monitor: external uterine Route of delivery: Delivery placenta: spontaneous Delivery cord: nuchal cord Episiotomy: none Delivery laceration: none Delivery comments: Patient was noted to be c/c/+2 and commneced to pushing a non viable female with head and shoulders. No breathing movements noted. Loose cord around neck and body. The cord was cut and clamped. Pitocin started and bulging bag noted and arom fluid and breech delivery proceeded. the cord was clamped and cut. Pitocin initiated and delivery of both placneta sent to pathology. Patient had uterine atony which was given 1000 cytotec and .25 of methergine. Bleeding stable. Started clinda. amp and gent for chorio. Patient tolerated procedure well. - A at 1 minute: 0 at 5 minutes: 0 Gender: Female B at 1 minute: 0 at 5 minutes: 0 Infant Gender: Female
[2019-12-25] MEDS ORDERED: GENTAMICIN IV ONE (14:00)
[2019-12-25] MEDS ORDERED: SODIUM CHLORIDE IV ONE (14:00)
[2019-12-25] MEDS ORDERED: GENTAMICIN 160 MG in SODIUM CHLORIDE 0.9% 100 ML IV ONE (14:15)
[2019-12-25] MEDS ORDERED: miSOPROStol 200 MCG TAB PR SCH (18:00)
[2019-12-25 19:00] LABS: Bilirubin,Urine NEG (Negative); Blood,Urine NEG (Negative); Color,Urine Yellow (Yellow); Mucus,Urine FEW /HPF; Protein,Urine <15 mg/dL mg/dL (Negative)
[2019-12-25 20:49] LABS: Hematocrit 27.3 % (30.3-42.9); Hemoglobin 8.9 gm/dl (10.1-14.3); Mean Corpuscular HGB Conc 33 % (30-34); Mean Corpuscular Volume 75 fl (79-97); Platelet Count 165 K/mm3 (140-440); Red Blood Count 3.63 M/mm3 (3.65-5.03); Red Cell Distribution Width 15.4 % (13.2-15.2)
[2019-12-25 21:55] LABS: Band Neutrophils # (Manual) 0.4 K/mm3; Basophils % (Manual) 0 % (0.0-1.8); Eosinophils % (Manual) 0 % (0.0-4.3); Total Cells Counted 100
[2019-12-25 21:56] LABS: Anisocytosis 2+
[2019-12-25 21:57] LABS: Macrocytosis Few
[2019-12-25 21:58] LABS: Tear Drop Cells Few
[2019-12-25 21:59] LABS: Ovalocytes Few
[2019-12-25 22:00] LABS: Platelet Estimate Consistent w Auto
[2019-12-25] MEDS: GENTAMICIN 160 MG in SODIUM CHLORIDE 0.9% 100 ML IV SCH (23:15)
[2019-12-26] MEDS: AMPICILLIN/NS 2 GM/100 ML 2 GM/100 ML BAG IV SCH ×2 (00:40→06:33)
[2019-12-26] MEDS: LACTATED RINGERS 1,000 ML IV SCH ×2 (04:36→18:00)
--- NOTE | 2019-12-26 09:14 | Progress Note ---
Assessment and Plan A/P s/p of vertex and breech delivery of non viable female infants at 21 weeks PP hemorrhage -s/p methergine and cytotec chorio/endometititis on amp gent and clinda continue present mgt close maternal status of VSS repeat CBC today Subjective - Subjective Date of service: 12/26/19 Principal diagnosis: twins, PPROM, inevitable Patient reports: appetite normal, voiding normally, pain well controlled, flatus, ambulating normally [place]: Objective - Vital Signs Latest vital signs: Vital Signs Temp Pulse Resp BP BP Pulse Ox 12/26/19 04:00 99 F 93 H 18 80/33 12/26/19 00:00 98.7 F 106 H 18 103/52 12/25/19 19:30 102.5 F H 111 H 18 93/42 12/25/19 18:35 20 107/47 12/25/19 18:30 101.3 F H 111 H 20 83/38 12/25/19 17:06 132 H 99 12/25/19 17:01 102.5 F H 120 H 100 12/25/19 17:00 118 H 112/52 12/25/19 16:56 116 H 100 12/25/19 16:51 127 H 100 12/25/19 16:46 64 96 12/25/19 16:41 121 H 100 12/25/19 16:36 116 H 99 12/25/19 16:31 118 H 99 12/25/19 16:26 118 H 98 12/25/19 16:21 114 H 99 12/25/19 16:16 106 H 100 12/25/19 16:11 119 H 100 12/25/19 16:06 117 H 100 12/25/19 16:04 117 H 85 12/25/19 16:01 118 H 100 12/25/19 15:56 115 H 100 12/25/19 15:51 118 H 100 12/25/19 15:48 117 H 86 12/25/19 15:46 100 H 71 L 12/25/19 15:45 142 H 137/98 12/25/19 15:41 122 H 97 12/25/19 15:36 117 H 0 L 12/25/19 15:31 115 H 0 L 12/25/19 15:26 124 H 84 05/23/20 15:21 133 H 99 12/25/19 15:16 118 H 100 12/25/19 15:15 120 H 119/59 12/25/19 15:11 118 H 87 12/25/19 15:06 102.5 F H 102 H 100 12/25/19 15:01 112 H 100 12/25/19 14:56 115 H 100 12/25/19 14:51 116 H 100 12/25/19 14:46 115 H 99 12/25/19 14:45 114 H 117/53 12/25/19 14:41 117 H 99 12/25/19 14:36 117 H 100 12/25/19 14:31 124 H 100 12/25/19 14:26 121 H 100 12/25/19 14:21 120 H 100 12/25/19 14:16 163 H 100 12/25/19 14:15 121 H 116/57 12/25/19 14:11 144 H 91 12/25/19 14:09 95 H 81 L 12/25/19 14:06 126 H 99 12/25/19 14:04 136 H 89 12/25/19 14:01 132 H 99 12/25/19 13:56 128 H 100 12/25/19 13:51 129 H 100 12/25/19 13:46 132 H 100 12/25/19 13:45 130 H 118/58 12/25/19 13:43 146 H 93 12/25/19 13:41 139 H 100 12/25/19 13:36 138 H 98 12/25/19 13:31 144 H 88 12/25/19 13:26 143 H 64 L 12/25/19 13:21 113 H 89 12/25/19 13:16 143 H 94 12/25/19 13:15 141 H 125/76 66 L 12/25/19 13:11 151 H 94 12/25/19 13:09 29 L 12/25/19 13:06 61 89 12/25/19 13:04 80 69 L 12/25/19 13:01 116 H 90 12/25/19 12:56 43 L 79 L 12/25/19 12:54 98 H 88 12/25/19 12:51 74 82 L 12/25/19 12:50 100.5 F H 12/25/19 12:48 57 L 94 12/25/19 12:44 133 H 97 12/25/19 12:39 80 91 05 12:37 78 L 12/25/19 12:32 72 86 12/25/19 12:27 75 79 L 12/25/19 12:22 49 L 99 12/25/19 12:17 49 L 86 12/25/19 12:15 117 H 149/76 12/25/19 12:12 47 L 92 12/25/19 12:07 42 L 85 12/25/19 12:04 60 82 L 12/25/19 12:02 69 81 L 12/25/19 11:57 72 90 12/25/19 11:52 122 H 98 12/25/19 11:47 124 H 100 12/25/19 11:45 115 H 105/59 76 L 12/25/19 11:42 107 H 100 12/25/19 11:37 121 H 99 12/25/19 11:36 109 H 90 12/25/19 11:32 116 H 96 12/25/19 11:30 112 H 80 L 12/25/19 11:27 88 100 12/25/19 11:22 109 H 98 12/25/19 11:18 97 H 91 12/25/19 11:17 108 H 96 12/25/19 11:15 109 H 121/56 12/25/19 11:14 98.8 F 110 H 12/25/19 11:13 109 H 92 12/25/19 11:12 115 H 97 12/25/19 11:07 112 H 96 12/25/19 11:06 107 H 94 12/25/19 11:02 121 H 100 12/25/19 10:57 105 H 100 12/25/19 10:52 120 H 100 12/25/19 10:47 109 H 100 12/25/19 10:45 105 H 129/58 05 10:42 117 H 99 12/25/19 10:40 38 L 12/25/19 10:36 127 H 81 L 12/25/19 10:34 106 H 71 L 12/25/19 10:31 109 H 99 12/25/19 10:27 85 05 10:25 105 H 87 05 10:21 109 H 90 12/25/19 10:20 105 H 88 05 10:15 109 H 89 12/25/19 10:14 111 H 108/54 12/25/19 10:13 56 L 81 L 12/25/19 10:12 99.3 F 110 H 12/25/19 10:09 102 H 120/65 100 12/25/19 10:07 112 H 86/45 94 12/25/19 10:04 107 H 99 12/25/19 09:59 102 H 92/53 100 12/25/19 09:54 105 H 100 12/25/19 09:49 103 H 100 12/25/19 09:44 104 H 89/42 100 12/25/19 09:39 103 H 100 12/25/19 09:34 117 H 86 12/25/19 09:29 111 H 100 12/25/19 09:27 106 H 94/50 12/25/19 09:25 106 H 101/56 12/25/19 09:24 100 H 100 12/25/19 09:23 101 H 99/56 12/25/19 09:21 122 H 89/51 12/25/19 09:19 109 H 88/50 100 12/25/19 09:17 105 H 98/52 12/25/19 09:15 104 H 98/52 12/25/19 09:14 113 H 89/49 100 12/25/19 09:13 111 H 71/33 Intake and Output 12/25/19 12/26/19 12/26/19 23:59 07:59 15:59 Intake Total 1150 100 Output Total 250 Balance 900 100 Intake: IV 1150 100 AMPICILLIN/NS 2 GM/100 ML 100 100 2 gm In 100 ml @ 100 mls /hr IV Q6H [facility] Rx#: [id number] CLEOCIN 900 MG/50 mL 900 50 mg In 50 ml @ 100 mls/hr IV Q8HR [facility] Rx#:[id number] Lactated Ringers 1,000 ml 1000 @ 125 mls/hr IV DIRECT [facility] Rx#:[id number] Output: Urine 250 Void 250 Other: Total, Output Amount 250 # Voids Void 1 1 - Exam Breasts: Present: normal Cardiovascular: Present: Regular rate, Normal S1 Lungs: Present: Clear to auscultation, Normal air movement Abdomen: Present: normal appearance, soft, normal bowel sounds. Absent: distention, tenderness, guarding Vulva: both: normal Uterus: Present: normal, firm, fundal height below umbilicus. Absent: bogginess, tenderness Extremities: Present: normal Deep Tendon Reflex Grade: Normal +2 - Labs Labs: Abnormal lab results 12/25/19 Range/Units 20:19 WBC 21.3 H (4.5-11.0) K/mm3 RBC 3.63 L (3.65-5.03) M/mm3 Hgb 8.9 L (10.1-14.3) gm/dl Hct 27.3 L (30.3-42.9) % MCV 75 L (79-97) fl MCH 25 L (28-32) pg RDW 15.4 H (13.2-15.2) % Seg Neuts % (Manual) 88.0 H (40.0-70.0) % Lymphocytes % (Manual) 9.0 L (13.4-35.0) % Seg Neutrophils # Man 18.7 H (1.8-7.7) K/mm3
[2019-12-26] MEDS: GENTAMICIN 160 MG in SODIUM CHLORIDE 0.9% 100 ML IV SCH (09:37)
[2019-12-26 10:34] LABS: Hemoglobin 8.9 gm/dl (10.1-14.3); Mean Corpuscular HGB Conc 33 % (30-34); Mean Corpuscular Volume 76 fl (79-97); Platelet Count 169 K/mm3 (140-440); Red Blood Count 3.56 M/mm3 (3.65-5.03); Red Cell Distribution Width 15.2 % (13.2-15.2)
[2019-12-26] MEDS: PRENATAL VIT27-FE FUMARATE-FOLIC ACID VIT TAB PO SCH (10:35)
--- NOTE | 2019-12-26 11:29 | Consultation ---
History of Present Illness - Reason for Consult Consult date: 12/26/19 Reason for consult: Depression - History of Present Psychiatric Illness Yeny Titus is a 24y/o female patient who was admitted into the hospital for "leakage of fluid and pelvic pressure," per chart. During my interview with the patient his morning she is sitting on side of the bed, texting. She is a/o x 3. She is cooperative. She is tearful. She states that this is her "first ." The patient states she "lost her twins." She says "it's difficulty to talk about." The patient admits to feeling "depressed," but denies SI/HI or ever being. She also denies any suicidal thoughts or attempts in the past. The patient also denies any fear or feelings of endangerment if she was to go home. She denies any illicit drug use, alcohol, or nicotine use. The patient also denies any history of psychiatric disorders or ever being on any psych medications. The patient denies hallucinations of any kind. I discussed with the patient starting an antidepressant. She was in agreement. Also explained to the patient the benefits and possible SE. She verbalized understanding. PAST PSYCHIATRIC HISTORY: Diagnoses: Denies Suicide attempts or Self-harm behavior: Denies Prior psychiatric hospitalizations: Denies Substance Abuse history: Denies Previous psychiatric medications tried: Denies Outpatient treatment: Denies PAST MEDICAL HISTORY: None reported Family Psychiatric History: None reported or documented SOCIAL HISTORY Current living status: Lives with significant other Employment status: Employed Highest level of education: One year of college Marital status: Single Legal history: Denies History of abuse: Denies REVIEW OF SYSTEMS Constitutional: Negative for weight loss ENT: Negative for stridor Respiratory: Negative for cough or hemoptysis All other systems reviewed and are negative MENTAL STATUS EXAMINATION General Appearance: Dressed appropriately Behavior: Cooperative. Fair eye contact. Tearful Mood: "Depressed" Affect: Congruent with stated mood Speech: Normal tone and pace Thought Process: Goal directed Thought Content: Suicidal Ideation: Denies Homicidal Ideation: Denies Hallucinations: Denies Delusions: None elicited Insight and Judgment: Good Memory/Cognition: Good Assessment Depression RECOMMENDATIONS Script Zoloft 25mg po daily Risks, benefits and alternatives of medications discussed with the patient, questions answered and consent obtained from patient. PSYCHOTHERAPY: Supportive psychotherapy provided MEDICAL: Per primary team DELIRIUM PRECAUTIONS: Please re-orient patient frequently, keep lights on during the day, and minimize benzodiazepines and opiates as these medications could worsen patient's confusion. ANALOG DESIGN ENGINEER: Per OBGYN/PrimayTeam DISPOSITION: The patient does not meet the requirement for acute inpatient psychiatric treatment. She may discharge home once cleared by her NOC ANALYST/Primary. The patient understands that if SI/HI or feelings of endangerment are to arise she is to seek immediate assistance, including but not limited to the crisis hotline, 911 and/or ER. The bellows charger assembler is to give the patient safety plan, and referrals for outpatient psychiatry and grief counseling. The patient is to follow up with outpatient psychiatry or primary in 7 to 14 days upon discharge. The plan was discussed with the patient she verbalizes agreement and understanding Will sign off. Thank you for the consult. Please contact with any questions and/or concerns. Medications and Allergies Allergies Allergy/AdvReac Type Severity Reaction Status Date / Time No Known Allergies Allergy Verified 12/23/19 23:12 Home Medications Medication Instructions Recorded Confirmed Last Taken Type Sertraline [Zoloft] 25 mg PO QDAY #30 tab 12/26/19 Unknown Rx Active Meds: Active Medications Acetaminophen (Tylenol) 650 mg PO Q4H PRN PRN Reason: Pain MILD(1-3)/Fever >100.5/CAIN Last Admin: 12/25/19 21:38 Dose: 650 mg Documented by: Butorphanol Tartrate (Stadol) 2 mg IV Q2H PRN PRN Reason: Labor Pain Last Admin: 12/25/19 06:44 Dose: 2 mg Documented by: Docusate Sodium (Colace) 100 mg PO Q12H PRN PRN Reason: Constipation Ephedrine Sulfate (Ephedrine Sulfate) 10 mg IV Q2M PRN PRN Reason: Hypotension Last Admin: 12/25/19 09:49 Dose: 10 mg Documented by: Lactated Ringer's (Lactated Ringers) 1,000 mls @ 125 mls/hr IV DIRECT [facility] Last Admin: 12/26/19 04:36 Dose: 1,200 mls/hr Documented by: Fentanyl/Bupivacaine/Sodium Chlor (Fentanyl-Bupiv 2 Mcg/Ml-0.125%) 200 mcg in 100 mls @ 12 mls/hr EPIDURAL TITR [facility]; Protocol Last Admin: 12/25/19 09:57 Dose: 12 mls/hr Documented by: Oxytocin/Sodium Chloride (Pitocin/Ns 30 Unit/500ml) 30 units in 500 mls @ 1 mls/hr IV TITR [facility]; Protocol Last Titration: 12/25/19 12:50 Dose: 8 milliunits/min, 8 mls/hr Documented by: Ampicillin Sodium (Ampicillin/Ns 2 Gm/100 Ml) 2 gm in 100 mls @ 100 mls/hr IV Q6H [facility]; Protocol Last Admin: 12/26/19 06:33 Dose: 100 mls/hr Documented by: Gentamicin Sulfate 160 mg/ (Sodium Chloride) 104 mls @ 208 mls/hr IV Q8H [facility] Last Admin: 12/26/19 09:37 Dose: 208 mls/hr Documented by: Clindamycin HCl (Cleocin 900 Mg/50 Ml) 900 mg in 50 mls @ 100 mls/hr IV Q8HR [facility]; Protocol Last Admin: 12/26/19 06:00 Dose: 100 mls/hr Documented by: Multivitamins/Iron/Calcium ( Vitamin) 1 each PO QDAY [facility] Last Admin: 12/26/19 10:35 Dose: Not Given Documented by: Naloxone HCl (Naloxone) 0.2 mg IV Q5M PRN PRN Reason: Respiratory sedation Ondansetron HCl (Zofran) 4 mg IV Q6H PRN PRN Reason: Nausea And Vomiting Mental Status Exam - Vital signs Last Vital Signs Temp 99.8 F H 12/26/19 08:45 Pulse 98 H 12/26/19 08:45 Resp 18 12/26/19 08:45 BP 124/35 12/26/19 08:45 Pulse Ox 99 12/25/19 17:06 Results Result Diagrams: 12/26/19 10:16 12/24/19 11:15 Abnormal lab results 12/25/19 12/26/19 Range/Units 20:19 10:16 WBC 21.3 H 17.6 H (4.5-11.0) K/mm3 RBC 3.63 L 3.56 L (3.65-5.03) M/mm3 Hgb 8.9 L 8.9 L (10.1-14.3) gm/dl Hct 27.3 L 27.0 L (30.3-42.9) % MCV 75 L 76 L (79-97) fl MCH 25 L 25 L (28-32) pg RDW 15.4 H (13.2-15.2) % Seg Neuts % (Manual) 88.0 H (40.0-70.0) % Lymphocytes % (Manual) 9.0 L (13.4-35.0) % Seg Neutrophils # Man 18.7 H (1.8-7.7) K/mm3 All other labs normal.
[2019-12-26] MEDS: ACETAMINOPHEN 325 MG TAB PO PRN (11:41)
--- NOTE | 2019-12-26 12:19 | Progress Note ---
Assessment and Plan Cultures: blood culture no growth COVID neg Assessment: 24 yo female with history of morbid obesity, alpha thalassemia carrier and SCD trait and twin at 21 weeks admitted on due to suspected PPROM started on 12/22/2019 with fever: #SIRS: remains high fever 102.5, worsening leukocytosis; likely chorioamnionitis/endometritis. COVID test negative. UA neg. #PPROM on 12/22/19, s/p of vertex and breech delivery of non viable female infants at 21 weeks, devoped uterine hemorrhage Recommendations: ok to stop COVID isolation f/u blood culture stop ampicillin, clinda and gentamicin start zosyn 4.5 g IV q 8h monitor leukocytosis and fever I am covering this weekend Will follow. Inge Flores MD Infectious Diseases [place] [facility] ([facility]) M [phone] O [phone] Subjective Date of service: 12/26/19 Principal diagnosis: twins, PPROM, inevitable Interval history: Feels ok, had a fever 102.5 Objective - Exam Narrative Exam: General appearance: Alert in NAD morbidly obese Eyes: anicteric sclerae, moist conjunctivae; no lid-lag; PERRLA HENT: Atraumatic; oropharynx clear Lungs: CTA CV: RRR no murmur Abdomen: Soft, mild tenderness Extremities:+no edema Skin: No rash. Psych: Appropriate affect, alert and oriented to person, place and time. Neuro: alert and oriented x 3. Moving all extermities - Constitutional Vitals: Vital Signs Temp Pulse Resp BP Pulse Ox 99.8 F H 98 H 18 124/35 99 12/26/19 08:45 12/26/19 08:45 12/26/19 08:45 12/26/19 08:45 12/25/19 17:06 Temperature -Last 24 Hours Temperature 99.8 F Temperature 99 F Temperature 98.7 F Temperature 102.5 F Temperature 101.3 F Temperature 102.5 F Temperature 102.5 F Temperature 100.5 F Temperature 100.5 F - Labs CBC & Chem 7: 12/26/19 10:16 12/24/19 11:15 Labs: Abnormal lab results 12/25/19 12/26/19 Range/Units 20:19 10:16 WBC 21.3 H 17.6 H (4.5-11.0) K/mm3 RBC 3.63 L 3.56 L (3.65-5.03) M/mm3 Hgb 8.9 L 8.9 L (10.1-14.3) gm/dl Hct 27.3 L 27.0 L (30.3-42.9) % MCV 75 L 76 L (79-97) fl MCH 25 L 25 L (28-32) pg RDW 15.4 H (13.2-15.2) % Seg Neuts % (Manual) 88.0 H (40.0-70.0) % Lymphocytes % (Manual) 9.0 L (13.4-35.0) % Seg Neutrophils # Man 18.7 H (1.8-7.7) K/mm3
[2019-12-26 13:35] LABS: Anisocytosis 1+; Band Neutrophils # (Manual) 0.5 K/mm3; Basophils % (Manual) 0 % (0.0-1.8); Total Cells Counted 100
[2019-12-26 13:36] LABS: Platelet Estimate Consistent w Auto
[2019-12-26] MEDS: PIPERACIL/TAZOBACTA 4.5/NS 100 4.5 GM/100 ML VIAL IV SCH ×2 (14:38→22:18)
[2019-12-26] MEDS ORDERED: oxyCODONE /ACETAMINOPHEN 5-325MG TAB PO PRN (16:56)
[2019-12-26] MEDS: IBUPROFEN 800 MG TAB PO PRN (22:17)
--- NOTE | 2019-12-27 03:10 | Progress Note ---
Assessment and Plan A/P PPD 1 s/p of vertex and breech delivery of non viable female infants at 21 weeks PP hemorrhage -s/p methergine and cytotec chorio/endometititis on amp gent and clinda s/p mental health -placed on zoloft continue present mgt close maternal status of VSS appreciate ID recommnedations and chagnges to the abx Subjective - Subjective Date of service: 12/27/19 Principal diagnosis: twins, PPROM, inevitable Patient reports: appetite normal, voiding normally, pain well controlled, flatus, ambulating normally : doing well Objective - Vital Signs Latest vital signs: Vital Signs Temp Pulse Resp BP BP Pulse Ox 12/27/19 00:00 98.1 F 79 20 114/68 99 12/26/19 23:47 98.2 F 20 113/68 12/26/19 20:01 98.2 F 89 20 91/51 98 12/26/19 16:00 92 H 20 124/73 12/26/19 13:05 98.2 F 91 H 20 102/61 12/26/19 08:45 99.8 F H 98 H 18 124/35 12/26/19 04:00 99 F 93 H 18 80/33 Intake and Output 12/26/19 12/26/19 12/27/19 15:59 23:59 07:59 Intake Total 460 120 240 Balance 460 120 240 Intake: IV 100 ZOSYN/NS 4.5GM/100ML 4.5 100 gm In 100 ml @ 200 mls/hr IV Q8HR [facility] Rx#: [id number] Oral 360 120 240 Other: Total, Intake Amount 120 120 240 # Voids Void 1 1 1 - Exam Breasts: Present: normal Cardiovascular: Present: Regular rate, Normal S1 Lungs: Present: Clear to auscultation Abdomen: Present: normal appearance, soft, normal bowel sounds. Absent: distention, tenderness, guarding Uterus: Present: normal, firm, fundal height below umbilicus. Absent: bogginess, tenderness Extremities: Present: normal - Labs Labs: Abnormal lab results 12/26/19 Range/Units 10:16 WBC 17.6 H (4.5-11.0) K/mm3 RBC 3.56 L (3.65-5.03) M/mm3 Hgb 8.9 L (10.1-14.3) gm/dl Hct 27.0 L (30.3-42.9) % MCV 76 L (79-97) fl MCH 25 L (28-32) pg Seg Neuts % (Manual) 77.0 H (40.0-70.0) % Seg Neutrophils # Man 13.6 H (1.8-7.7) K/mm3
[2019-12-27] MEDS: PIPERACIL/TAZOBACTA 4.5/NS 100 4.5 GM/100 ML VIAL IV SCH ×3 (06:43→21:44)
[2019-12-27] MEDS: PRENATAL VIT27-FE FUMARATE-FOLIC ACID VIT TAB PO SCH (09:14)
[2019-12-27] MEDS: IBUPROFEN 800 MG TAB PO PRN (13:46)
[2019-12-28] MEDS: PIPERACIL/TAZOBACTA 4.5/NS 100 4.5 GM/100 ML VIAL IV SCH (05:43)
--- NOTE | 2019-12-28 08:04 | Progress Note ---
Assessment and Plan - Patient Problems (1) Chorioamnionitis Current Visit: Yes Status: Acute Plan to address problem: Patient is clinically improved Discharge home (2) delivery Current Visit: Yes Status: Acute Subjective - Subjective Date of service: 12/28/19 Principal diagnosis: twins, PPROM, inevitable Interval history: Patient reports feeling better. She has remained afebrile greater than 48 hours. Her pain is well controlled and she is tolerating regular diet. Patient reports: appetite normal, voiding normally, pain well controlled : Objective - Vital Signs Latest vital signs: Vital Signs Temp Pulse Resp BP BP Pulse Ox 12/28/19 05:12 98.0 F 20 107/56 12/28/19 00:15 98.2 F 76 128/80 12/28/19 00:14 98.4 F 77 20 128/80 98 12/27/19 19:49 98.2 F 77 19 115/78 96 12/27/19 16:06 98.1 F 80 16 100/53 100 12/27/19 13:46 18 12/27/19 12:12 98.0 F 71 20 129/79 100 Intake and Output 12/27/19 12/28/19 12/28/19 22:59 06:59 14:59 Intake Total 220 240 Balance 220 240 Intake: IV 100 ZOSYN/NS 4.5GM/100ML 4.5 100 gm In 100 ml @ 200 mls/hr IV Q8HR [facility] Rx#: [id number] Oral 120 120 Intake, Free Water 120 Other: Total, Intake Amount 120 120 # Voids Void 1
--- NOTE | 2019-12-28 08:06 | Discharge Summary ---
Providers - Providers Date of Admission: 12/23/19 21:49 Date of discharge: 12/28/19 Attending physician: BRIAN VEGA 12/23/19 22:37 Consult to Physician [CONS] Routine Comment: Consulting Provider: HÉCTOR GARCES Physician Instructions: Reason For Exam: Twin IUP, PPROM, fever on admission 12/24/19 08:25 Consult to Physician [CONS] Urgent Comment: Consulting Provider: DEENA HERNANDEZ Physician Instructions: Reason For Exam: pprom twins 20 weeks 12/24/19 08:30 Consult to Physician [CONS] Urgent Comment: Consulting Provider: JUANJO MENA Physician Instructions: Reason For Exam: PPROM, 20 weeks, febrile 12/26/19 10:00 Consult to Mental Health [CONS] Stat Reason For Exam: 20 weeks twins PTL, depression, x2 12/26/19 11:00 Consult to Case Management [CONS] Routine Services Needed at Discharge: Shop Router Notified:: CM Was contact made?: Yes If yes, spoke with:: CM Time called:: 11:00 Comment:: demise twins Primary care physician: BRIAN VEGA Hospitalization Reason for admission: rupture of membranes Delivery: Discharge diagnosis: delivery Hospital course: Patient admitted at 21 weeks with evidence of premature rupture membranes. The patient's intrapartum course is complicated by chorioamnionitis. She subsequently had a delivery of twin gestation that was nonviable at 21 weeks. The patient's course was complicated by febrile morbidity which she underwent treatment with triple antibiotics. Condition at discharge: Good Disposition: DC-01 TO HOME OR SELFCARE - Discharge Diagnoses (1) Chorioamnionitis Status: Acute (2) delivery Status: Acute Plan - Discharge Medications Prescriptions: Fluconazole (Nf) [Diflucan TAB] 150 mg PO ONCE #3 tablet Ibuprofen [Motrin] 800 mg PO Q8HR PRN #60 tablet PRN Reason: Pain, Mild (1-3) HYDROcodone/APAP 5-325 [[place] 5/325] 1 each PO Q6HR PRN #20 tablet PRN Reason: Pain Sertraline [Zoloft] 25 mg PO QDAY #30 tab - Provider Discharge Summary Activity: no sex for 6 weeks, no heavy lifting 4 weeks, no strenuous exercise Diet: routine Instructions: routine Additional instructions: [] Smoking cessation referral if applicable(refer to patient education folder for contact #) [] Refer to [facility]'s [facility] Booklet Call your doctor immediately for: * Fever > 100.5 * Heavy vaginal bleeding ( >1 pad per hour) * Severe persistent headache * Shortness of breath * Reddened, hot, painful area to leg or breast * Schedule visit in 4 weeks - Follow up plan
[2019-12-28 08:54] VITALS: BP 120/81
== END 2019-12-28 09:30 | disposition home or self-care (01) | DRG 775 ==
LOC: TRG 21:03 → LD 21:04 → TRG 21:49 → LD 12-24 01:59 → OB 12-25 18:39
PROVIDERS: ADMIT Obstetrics & Gynecology; ATTEND Obstetrics & Gynecology
PROC: 10E0XZZ Delivery of Products of Conception, External Approach (ICD-10-PCS; principal; 2019-12-25)
PROC: 3E0234Z Introduction of Serum, Toxoid and Vaccine into Muscle, Percutaneous Approach (ICD-10-PCS; 2019-12-26)
DX: O60.12X0 Preterm labor second trimester with preterm delivery second trimester, not applicable or unspecified (principal); Z3A.21 21 weeks gestation of pregnancy; O99.214 Obesity complicating childbirth; E66.01 Morbid (severe) obesity due to excess calories; O99.02 Anemia complicating childbirth; D57.3 Sickle-cell trait; Z37.4 Twins, both stillborn; Z03.818 Encounter for observation for suspected exposure to other biological agents ruled out; O75.89 Other specified complications of labor and delivery; D56.0 Alpha thalassemia; O26.892 Other specified pregnancy related conditions, second trimester; Z67.41 Type O blood, Rh negative; R65.10 Systemic inflammatory response syndrome (SIRS) of non-infectious origin without acute organ dysfunction; K21.9 Gastro-esophageal reflux disease without esophagitis; O99.62 Diseases of the digestive system complicating childbirth; O69.81X0 Labor and delivery complicated by cord around neck, without compression, not applicable or unspecified; O32.1XX0 Maternal care for breech presentation, not applicable or unspecified; O99.344 Other mental disorders complicating childbirth; F32.9 Major depressive disorder, single episode, unspecified; O41.1220 Chorioamnionitis, second trimester, not applicable or unspecified; O42.913 Preterm premature rupture of membranes, unspecified as to length of time between rupture and onset of labor, third trimester
CPT/HCPCS: 36415; 76816; 81001; 82565; 82728; 82947; 83615; 84145; 85007; 85025; 85379; 85461; 86140; 86850; 86900; 86901; 87040; 87086; 88305; 88307; G0378; J0290; J0595; J1580; J2210; J2405; J2543; J2590; J2790; J3490; J7120; U0003-CS